=== PATIENT | female | born 1955 | race African-American/Black ===

== ENCOUNTER 2023-07-14 06:20 | Inpatient (IN) | payer OTHER, MEDICAID ==
[~2023-07-14] VITALS: Ht 172.7 cm; Wt 106.4 kg
[~2023-07-14 06:20] MED LIST: CELE200C PO; LOSA-534 PO
[2023-07-14] MEDS: LIDOCAINE W/ EPINEPHRINE 1% 20ML VIAL ONE (06:41)
[2023-07-14] MEDS: SUCCINYLCHOLINE CHLORIDE 20 MG/ML 10ML VIAL IV ONE (06:41)
[2023-07-14] MEDS ORDERED: PHENYLEPHRINE HCL 10 MG/ML VL IV ONE (06:45)
[2023-07-14] MEDS ORDERED: HYDROmorphone HCL 2 MG/ML VL/or syr ONE (07:38)
[2023-07-14] MEDS ORDERED: fentaNYL CITRATE 100 MCG/2 ML VL ONE (07:39)
[2023-07-14] MEDS ORDERED: MIDAZOLAM HCL 2MG/2ML 2ml VIAL (1mg/ml) ONE (07:39)
[2023-07-14] MEDS ORDERED: PROPOFOL 10 MG/ML 20 ML IV ONE (08:25)
[2023-07-14] MEDS ORDERED: MORPHINE SULFATE 4 MG/ML SYR/VIAL IV PRN (08:30)
[2023-07-14] MEDS ORDERED: LABETALOL HCL 5 MG/ML 4ML SYRINGE IV PRN (08:30)
[2023-07-14] MEDS ORDERED: MIDAZOLAM HCL 2MG/2ML 2ml VIAL (1mg/ml) IV PRN (08:30)
[2023-07-14] MEDS ORDERED: ePHEDrine SULFATE 50 MG/ML AMP IV PRN (08:30)
[2023-07-14] MEDS ORDERED: ETOMIDATE (2MG/ML) 20ML VIAL IV ONE (08:54)
[2023-07-14] MEDS ORDERED: ONDANSETRON HCL 4 MG/2 ML VIAL ONE (08:54)
[2023-07-14] MEDS ORDERED: SUGAMMADEX 200mg/2ml Vial (100MG/ML) IV ONE (10:25)
[2023-07-14] MEDS ORDERED: MORPHINE SULFATE INJ 2 MG/ml SYRG IV PRN (10:30)
[2023-07-14] MEDS ORDERED: NITROGLYCERIN 0.4 MG SL TAB SL PRN (10:30)
[2023-07-14 10:48] VITALS: O2SAT 100
[2023-07-14] MEDS: HYDROmorphone HCL 2 MG/ML VL/or syr ONE (11:28)
[2023-07-14] MEDS: HYDROmorphone HCL 2 MG/ML VL/or syr IV PRN (11:31)
[2023-07-14] MEDS ORDERED: THROAT LOZENGES(CEPASTAT) MT PRN (12:15)
[2023-07-14 12:51] VITALS: BP 112/58; PULSE 56; RESP 16; TEMP 97.2; O2SAT 100
[2023-07-14] MEDS ORDERED: ceFAZolin 1GM/50ML 50 ML IV SCH (14:00)
[2023-07-14] MEDS: CYCLOBENZAPRINE HCL 10 MG TAB PO SCH (14:10)
[2023-07-14] MEDS: ceFAZolin 1GM/50ML 50 ML IV SCH (14:12)
[2023-07-14] MEDS: D5W/SOD CHLO 0.9% 1,000 ML IV SCH (14:12)
[2023-07-14] MEDS: ONDANSETRON HCL 4 MG/2 ML VIAL IV PRN (14:25)
[2023-07-14 16:15] VITALS: BP 131/66; PULSE 62; RESP 18; TEMP 97.4; O2SAT 97
[2023-07-14 20:00] VITALS: BP 123/69; PULSE 74; RESP 20; TEMP 97.5; O2SAT 95
[2023-07-14 21:00] VITALS: BP 123/69; PULSE 69; RESP 20; TEMP 97.5; O2SAT 95
[2023-07-14] MEDS: DOCUSATE SOD 100 MG CAP PO SCH (21:39)
[2023-07-14] MEDS: MORPHINE SULFATE INJ 2 MG/ml SYRG IV PRN (23:54)
[2023-07-15] VITALS (7 sets, daily range): BP systolic 92–140; BP diastolic 50–76; PULSE 56–131; RESP 16–22; TEMP 97.8–99; O2SAT 91–96
[2023-07-15] MEDS: HYDROcodone-ACET 10/325MG TAB PO PRN (03:34)
[2023-07-15 06:47] LABS: Basophils # (auto) 0 10 ^3/uL (0-0.2); Basophils % (auto) 0.1 % (0.0-2.0); Eosinophils # (auto) 0 10 ^3/uL (0-0.8); Hematocrit 35.2 % (36.0-46.0); Hemoglobin 11.3 g/dL (12.2-16.2); Lymphocytes # (auto) 0.9 10 ^3/uL (0.4-5.4); Lymphocytes % (auto) 8.2 % (10.0-50.0); Mean Corpuscular Hemoglobin 27.1 pg (28.0-32.0); Mean Corpuscular Hgb Conc. 32.2 g/dL (32.0-36.0); Mean Corpuscular Volume 84.1 fL (80.0-100.0); Monocytes # (auto) 1.1 10 ^3/uL (0-1.3); Monocytes % (auto) 10.1 % (0.0-12.0); Neutrophils # (auto) 8.7 10 ^3/uL (1.6-8.6); Neutrophils % (auto) 81.6 % (37.0-80.0); Red Blood Cells 4.19 10^6/uL (4.0-5.20); Red Cell Distribution Width 14.6 % (11.8-14.3); White Blood Cell 10.7 10^3/uL (4.4-10.8)
[2023-07-15 06:54] LABS: Anion Gap 6 (5-15); Carbon Dioxide 25 mmol/L (20-30); Chloride 108 mmol/L (98-107); Potassium 3.8 mmol/L (3.5-5.1); Sodium 139 mmol/L (136-145)
[2023-07-15 06:55] LABS: Calcium 8.8 mg/dL (8.7-10.4)
[2023-07-15 07:00] LABS: Glucose 105 mg/dL (74-106); Magnesium 1.7 mg/dL (1.6-2.6)
[2023-07-15 07:10] LABS: BUN/Creatinine Ratio 6.8 (10.0-20.0); Blood Urea Nitrogen < 5 mg/dL (9-23)
[2023-07-15] MEDS: levoFLOXacin 750MG 150 ML IV ONE (11:23)
[2023-07-15] MEDS: ceFAZolin 1GM/50ML 50 ML IV SCH (11:24)
[2023-07-15] MEDS: TRANEXAMIC ACID 20 ML ONE (11:24)
[2023-07-15] MEDS: LIDOCAINE 2% JELLY 11ml (GLYDO) ONE (11:25)
[2023-07-15] MEDS: ceFAZolin 1GM/50ML 100 ML IV ONE (11:25)
[2023-07-15] MEDS: ONDANSETRON HCL 4 MG/2 ML VIAL IV ONE (11:25)
[2023-07-15] MEDS: ACETAMINOPHEN 325 MG TAB PO PRN (21:24)
[2023-07-16] VITALS (8 sets, daily range): BP systolic 106–148; BP diastolic 49–76; PULSE 92–109; RESP 17–22; TEMP 99–100.7; O2SAT 92–96
[2023-07-16] MEDS: ceFAZolin 1GM/50ML 50 ML IV SCH (00:52)
[2023-07-17] VITALS (33 sets, daily range): BP systolic 82–135; BP diastolic 40–71; PULSE 71–137; RESP 13–38; TEMP 97.5–102.7; O2SAT 69–100
[2023-07-17] MEDS ORDERED: IBUPROFEN 600 MG TAB PO PRN (05:45)
[2023-07-17] MEDS: dilTIAZem 25 MG/5 ML VIAL IV ONE ×2 (05:51→05:52)
[2023-07-17] MEDS: SODIUM CHLORIDE 0.9% 250 ML IV ONE (09:10)
[2023-07-17 09:22] LABS: Hemoglobin 12.4 g/dL (12.2-16.2)
[2023-07-17 09:26] LABS: Hematocrit 37.8 % (36.0-46.0); Mean Corpuscular Hgb Conc. 32.9 g/dL (32.0-36.0); Mean Corpuscular Volume 82.2 fL (80.0-100.0); Red Cell Distribution Width 14.4 % (11.8-14.3); White Blood Cell 14.1 10^3/uL (4.4-10.8)
[2023-07-17 09:36] LABS: Chloride 104 mmol/L (98-107); Potassium 2.6 mmol/L (3.5-5.1); Sodium 135 mmol/L (136-145)
[2023-07-17 09:37] LABS: Anion Gap 12 (5-15); Calcium 8.5 mg/dL (8.5-10.1); Carbon Dioxide 19 mmol/L (20-30)
[2023-07-17 09:42] LABS: BUN/Creatinine Ratio 7.3 (10.0-20.0); Blood Urea Nitrogen 6 mg/dL (9-23); Glucose 108 mg/dL (74-106)
[2023-07-17 09:58] LABS: Basophils % (manual) 0 (0.0-2.0); Blast Cells 0; Eosinophils % (manual) 0 (0-7); Myelocytes % 0; Promyelocytes % 0; Reactive Lymphocytes 0
[2023-07-17 10:09] LABS: Lactic Acid w/Reflex 2.6 mmol/L (0.4-2.0)
[2023-07-17] MEDS: SODIUM CHLORIDE 0.9% 500 ML IV ONE (10:30)
[2023-07-17] MEDS: POTASSIUM CHLORIDE 80 MEQ, LIDOCAINE 1% (LOCAL ANESTH.) 6 ML in SODIUM CHL 0.9% 500 ML IV ONE (10:30)
[2023-07-17 11:04] LABS: Magnesium 1.4 mg/dL (1.6-2.6)
[2023-07-17 11:19] LABS: Band Neutrophils % (manual) 16; Lymphocytes % (manual) 8 (10.0-50.0); Metamyelocytes % 6; Monocytes % (manual) 3 (0-12); Platelet Estimate Adequate
[2023-07-17] MEDS: MAGNESIUM SULFATE 1GM/100ML 100 ML IV SCH (11:51)
[2023-07-17] MEDS: AMIODARONE BOLUS KIT 100 ML IV ONE ×2 (14:07→14:15)
[2023-07-17] MEDS: AMIODARONE 450mg/250ml AE 250 ML IV ONE (14:07)
[2023-07-17] MEDS: DIGOXIN (250MCG/ML) 2 ML AMPULE ONE (14:12)
[2023-07-17] MEDS: DIGOXIN (250MCG/ML) 2 ML AMPULE IV ONE (14:15)
[2023-07-17] MEDS ORDERED: NOREPINEPHRINE 8 MG/250ML KIT 250 ML IV ONE (14:16)
[2023-07-17] MEDS: SODIUM CHLORIDE 0.9% 1,000 ML IV ONE (14:30)
[2023-07-17] MEDS: AMIODARONE 450mg/250ml AE 250 ML IV SCH ×2 (14:30→21:58)
[2023-07-17] MEDS: IOHEXOL 350 MG/ML 100ML IJ ONE (15:04)
[2023-07-17] MEDS: cefTRIAXone 2GM/50ML D5W 50 ML IV ONE (16:45)
[2023-07-18] VITALS (32 sets, daily range): BP systolic 84–139; BP diastolic 38–105; PULSE 75–91; RESP 17–37; TEMP 98.7–100.4; O2SAT 82–100
[2023-07-18] MEDS: PANTOPRAZOLE 40 MG/10 ML VIAL INJ IV SCH (01:32)
[2023-07-18 05:06] LABS: Basophils # (auto) 0 10 ^3/uL (0-0.2); Basophils % (auto) 0.2 % (0.0-2.0); Eosinophils # (auto) 0 10 ^3/uL (0-0.8); Eosinophils % (auto) 0.1 % (0.0-7.0); Lymphocytes # (auto) 0.8 10 ^3/uL (0.4-5.4); Lymphocytes % (auto) 5.5 % (10.0-50.0); Mean Corpuscular Hgb Conc. 32.4 g/dL (32.0-36.0); Mean Corpuscular Volume 83.2 fL (80.0-100.0); Monocytes # (auto) 1.3 10 ^3/uL (0-1.3); Monocytes % (auto) 8.5 % (0.0-12.0); Neutrophils # (auto) 13.1 10 ^3/uL (1.6-8.6); Neutrophils % (auto) 85.7 % (37.0-80.0); Red Blood Cells 3.73 10^6/uL (4.0-5.20); Red Cell Distribution Width 14.5 % (11.8-14.3); White Blood Cell 15.3 10^3/uL (4.4-10.8)
[2023-07-18 05:22] LABS: Alanine Aminotransferase 14 U/L (7-40); Albumin 2.7 g/dL (3.2-4.8); Alkaline Phosphatase 70 U/L (46-116); Anion Gap 5 (5-15); Aspartate Aminotransferase 40 U/L (13-40); BUN/Creatinine Ratio 8.9 (10.0-20.0); Blood Urea Nitrogen 5 mg/dL (9-23); Calcium 7.8 mg/dL (8.7-10.4); Carbon Dioxide 22 mmol/L (20-30); Chloride 111 mmol/L (98-107); Glucose 123 mg/dL (74-106); Magnesium 2.1 mg/dL (1.6-2.6); Potassium 3.7 mmol/L (3.5-5.1); Sodium 138 mmol/L (136-145)
[2023-07-18 05:23] LABS: Bilirubin, Total 0.7 mg/dL (0.2-1.0); Total Protein 4.9 g/dL (5.7-8.2)
[2023-07-18] MEDS: cefTRIAXone 2GM/50ML D5W 50 ML IV SCH (10:38)
[2023-07-18] MEDS: AMIODARONE HCL 200 MG TAB PO SCH ×2 (13:33→21:24)
[2023-07-19] VITALS (8 sets, daily range): BP systolic 111–144; BP diastolic 53–78; PULSE 89–104; RESP 17–23; TEMP 97.9–98.9; O2SAT 97–100
[2023-07-19] MEDS: PIPERACILLIN-TAZOB 3.375GM 100 ML IV SCH (00:05)
[2023-07-19] MEDS: MORPHINE SULFATE INJ 2 MG/ml SYRG IV PRN (03:26)
[2023-07-19] MEDS ORDERED: HYDROcodone-ACET 10/325MG TAB PO PRN (12:30)
[2023-07-19] MEDS: D5W/SOD CHLO 0.9% 1,000 ML IV SCH (13:45)
[2023-07-19] MEDS: HYDROcodone-ACET 5/325MG TAB PO PRN (14:26)
[2023-07-19] MEDS ORDERED: HALOPERIDOL LACTATE 5 MG/ML INJ VIAL IM PRN (20:30)
[2023-07-19] MEDS: AMIODARONE HCL 200 MG TAB PO SCH (22:09)
[2023-07-19 22:49] LABS: Urine Bacteria None Seen /hpf (None Seen)
[2023-07-19 22:58] LABS: Urine Blood Negative /uL (Negative); Urine Clarity Clear (Clear); Urine Color Light-Yellow (Yellow); Urine Mucus FEW (None Seen); Urine Protein, UAD Negative (Negative); Urine Urobilinogen 3 mg/dL (Negative); Urine WBC 1 /hpf (0 - 5)
[2023-07-20] VITALS (8 sets, daily range): BP systolic 109–145; BP diastolic 51–70; PULSE 82–95; RESP 17–25; TEMP 37.2; O2SAT 96–100
[2023-07-20 03:03] LABS: Basophils # (auto) 0 10 ^3/uL (0-0.2); Basophils % (auto) 0.3 % (0.0-2.0); Eosinophils # (auto) 0 10 ^3/uL (0-0.8); Eosinophils % (auto) 0.4 % (0.0-7.0); Hematocrit 30.2 % (36.0-46.0); Monocytes # (auto) 1.1 10 ^3/uL (0-1.3)
[2023-07-20 03:05] LABS: Hemoglobin 9.9 g/dL (12.2-16.2); Lymphocytes # (auto) 0.7 10 ^3/uL (0.4-5.4); Lymphocytes % (auto) 7.3 % (10.0-50.0); Mean Corpuscular Hemoglobin 27.3 pg (28.0-32.0); Mean Corpuscular Hgb Conc. 32.8 g/dL (32.0-36.0); Mean Corpuscular Volume 83.2 fL (80.0-100.0); Monocytes % (auto) 11.3 % (0.0-12.0); Neutrophils % (auto) 80.7 % (37.0-80.0); Red Blood Cells 3.63 10^6/uL (4.0-5.20); Red Cell Distribution Width 14.4 % (11.8-14.3); White Blood Cell 9.9 10^3/uL (4.4-10.8)
[2023-07-20 03:22] LABS: Alanine Aminotransferase 14 U/L (7-40); Albumin 3.1 g/dL (3.2-4.8); Alkaline Phosphatase 78 U/L (46-116); Anion Gap 7 (5-15); Aspartate Aminotransferase 29 U/L (13-40); Calcium 8.2 mg/dL (8.7-10.4); Carbon Dioxide 22 mmol/L (20-30); Chloride 107 mmol/L (98-107); Glucose 109 mg/dL (74-106); Magnesium 1.9 mg/dL (1.6-2.6); Potassium 3.4 mmol/L (3.5-5.1); Sodium 136 mmol/L (136-145); Total Protein 5.4 g/dL (5.7-8.2)
[2023-07-20 03:26] LABS: BUN/Creatinine Ratio 8.8 (10.0-20.0); Blood Urea Nitrogen < 5 mg/dL (9-23)
[2023-07-20] MEDS ORDERED: CEFPODOXIME PROXETIL 200 MG TAB PO SCH (22:00)
[2023-07-20] MEDS ORDERED: METOPROLOL TARTRATE 25 MG TAB PO SCH (22:00)
[2023-07-20] MEDS ORDERED: LEVO500T91 PO (22:43)
[2023-07-21 08:06] LABS: RPR Non Reactive (Non Reactive)
== END 2023-07-20 19:00 | DRG 460 ==
LOC: SUR 06:20 → TELE 10:26 → TELE-CENTR 12:30 → DOU IN ICU 07-17 17:13 → TELE-WESTW 07-18 14:58
PROVIDERS: ADMIT Orthopaedic Surgery; ATTEND Orthopaedic Surgery
PROC: 01NB0ZZ Release Lumbar Nerve, Open Approach (ICD-10-PCS; 2023-07-14)
PROC: 00NY0ZZ Release Lumbar Spinal Cord, Open Approach (ICD-10-PCS; 2023-07-14)
PROC: 4A11X4G Monitoring of Peripheral Nervous Electrical Activity, Intraoperative, External Approach (ICD-10-PCS; 2023-07-14)
PROC: 0SG00AJ Fusion of Lumbar Vertebral Joint with Interbody Fusion Device, Posterior Approach, Anterior Column, Open Approach (ICD-10-PCS; principal; 2023-07-14 07:45)
DX: M48.062 Spinal stenosis, lumbar region with neurogenic claudication (principal); E87.20 Acidosis, unspecified; R78.81 Bacteremia; I48.20 Chronic atrial fibrillation, unspecified; M54.16 Radiculopathy, lumbar region; M43.16 Spondylolisthesis, lumbar region; K21.9 Gastro-esophageal reflux disease without esophagitis; I10 Essential (primary) hypertension; E11.9 Type 2 diabetes mellitus without complications; E87.6 Hypokalemia; D72.829 Elevated white blood cell count, unspecified; E83.42 Hypomagnesemia; I48.91 Unspecified atrial fibrillation; B96.89 Other specified bacterial agents as the cause of diseases classified elsewhere; J45.909 Unspecified asthma, uncomplicated; G89.29 Other chronic pain; Z90.711 Acquired absence of uterus with remaining cervical stump; Z90.49 Acquired absence of other specified parts of digestive tract
CPT/HCPCS: 36415; 71045; 71275; 72100; 74018; 76000; 80048; 80053; 81001; 82140; 82607; 82962; 83605; 83735; 85007; 85025; 85027; 86592; 86850; 86900; 86901; 87040; 87077; 87086; 87186; 93005; 93306; 97110; 97116; 97163; 97530; C9113; G0378; J0330; J2001; J2250; J2405; J2543; J2704; J7042

== ENCOUNTER 2023-09-05 16:09 | Emergency (ER) | payer OTHER, MEDICAID ==
[~2023-09-05] VITALS: Ht 154.9 cm; Wt 86.0 kg
[~2023-09-05 16:09] MED LIST changes: +LEVO500T91 PO
[2023-09-05 18:26] LABS: Basophils # (auto) 0 10 ^3/uL (0-0.2); Basophils % (auto) 0.4 % (0.0-2.0); Eosinophils # (auto) 0 10 ^3/uL (0-0.8); Eosinophils % (auto) 0.1 % (0.0-7.0); Hematocrit 37.5 % (36.0-46.0); Hemoglobin 12.4 g/dL (12.2-16.2); Lymphocytes # (auto) 1.6 10 ^3/uL (0.4-5.4); Mean Corpuscular Hemoglobin 26.7 pg (28.0-32.0); Mean Corpuscular Volume 80.9 fL (80.0-100.0); Monocytes # (auto) 0.9 10 ^3/uL (0-1.3); Monocytes % (auto) 11.9 % (0.0-12.0); Neutrophils % (auto) 66.6 % (37.0-80.0); Red Blood Cells 4.63 10^6/uL (4.0-5.20); Red Cell Distribution Width 16.4 % (11.8-14.3); White Blood Cell 7.4 10^3/uL (4.4-10.8)
[2023-09-05] MEDS ORDERED: ACE3T PO (18:41)
[2023-09-05] MEDS ORDERED: LACT10SO3 PO (18:41)
[2023-09-05 18:48] LABS: Alanine Aminotransferase 15 U/L (7-40); Albumin 4.3 g/dL (3.2-4.8); Alkaline Phosphatase 122 U/L (46-116); Anion Gap 10 (5-15); Aspartate Aminotransferase 25 U/L (13-40); BUN/Creatinine Ratio 10.7 (10.0-20.0); Bilirubin, Total 1.3 mg/dL (0.2-1.0); Blood Urea Nitrogen 12 mg/dL (9-23); Calcium 10.2 mg/dL (8.5-10.1); Carbon Dioxide 27 mmol/L (20-30); Chloride 98 mmol/L (98-107); Glucose 93 mg/dL (74-106); Potassium 2.9 mmol/L (3.5-5.1); Sodium 135 mmol/L (136-145); Total Protein 8.5 g/dL (5.7-8.2)
[2023-09-05] MEDS: LACTULOSE 20Gm/30ML SOLN PO ONE (18:56)
[2023-09-05 18:59] VITALS: BP 128/68; PULSE 88; RESP 18; TEMP 98.7; O2SAT 100
[2023-09-05 19:02] LABS: Lactic Acid w/Reflex 2.3 mmol/L (0.4-2.0)
== END 2023-09-05 19:04 | disposition home or self-care (01) ==
LOC: ER 16:09
DX: K59.00 Constipation, unspecified (principal); G89.18 Other acute postprocedural pain; M54.9 Dorsalgia, unspecified
CPT/HCPCS: 36415; 74018; 80053; 83605; 85025

== ENCOUNTER 2023-09-19 17:05 | Inpatient (IN) | payer OTHER, MEDICAID ==
[~2023-09-19] VITALS: Ht 154.9 cm; Wt 88.3 kg
[~2023-09-19 17:05] MED LIST changes: +ACE3T PO; +LACT10SO3 PO
[2023-09-19 17:42] VITALS: PULSE 78; RESP 18; O2SAT 98
[2023-09-19] MEDS: SODIUM CHLORIDE 0.9% 1,000 ML IV ONE ×3 (18:34→20:16)
[2023-09-19] MEDS: KETOROLAC TROMETH 30 MG/ML 1ML VIAL IV ONE (18:34)
[2023-09-19 19:10] LABS: Albumin 3.5 g/dL (3.2-4.8); Alkaline Phosphatase 86 U/L (46-116); Anion Gap 8 (5-15); Aspartate Aminotransferase 13 U/L (13-40); Blood Urea Nitrogen 7 mg/dL (9-23); Calcium 9.3 mg/dL (8.7-10.4); Carbon Dioxide 25 mmol/L (20-30); Chloride 106 mmol/L (98-107); Glucose 99 mg/dL (74-106); Potassium 3.6 mmol/L (3.5-5.1); Sodium 139 mmol/L (136-145); Total Protein 7.1 g/dL (5.7-8.2)
[2023-09-19 19:27] LABS: INR 1.24 (0.9-1.15); Partial Thromboplastin Time 27.4 SEC (24.5-34.5); Prothrombin Time 12.9 sec (9.3-11.8)
[2023-09-19 19:30] VITALS: PULSE 76; RESP 12; O2SAT 97
[2023-09-19 19:34] LABS: Alanine Aminotransferase < 9 U/L (7-40)
[2023-09-19] MEDS: MIDAZOLAM HCL 2MG/2ML 2ml VIAL (1mg/ml) IV ONE (20:21)
[2023-09-19] MEDS: ACETAMINOPHEN 325 MG TAB PO ONE (20:31)
[2023-09-19] MEDS ORDERED: ACETAMINOPHEN 325 MG TAB PO PRN (21:00)
[2023-09-19] MEDS ORDERED: hydrALAZINE HCL 20 MG/ML VL IV PRN (21:00)
[2023-09-19] MEDS ORDERED: DOCUSATE SOD 100 MG CAP PO PRN (21:00)
[2023-09-19] MEDS: levETIRAcetam 500 mg/100ml 100 ML IV SCH (21:19)
[2023-09-19] MEDS: levETIRAcetam 1000 mg/100ml 100 ML IV ONE (21:21)
[2023-09-19] MEDS: SODIUM CHLORIDE 0.9% 1,000 ML IV SCH (21:23)
[2023-09-19] MEDS ORDERED: MORPHINE SULFATE INJ 2 MG/ml SYRG IV PRN (23:00)
[2023-09-20] MEDS: SODIUM CHLORIDE 0.9% 1,000 ML IV ONE (00:24)
[2023-09-20] MEDS: NOREPINEPHRINE 8 MG/250ML KIT 250 ML IV SCH (01:23)
[2023-09-20 01:25] LABS: Basophils # (auto) 0 10 ^3/uL (0-0.2); Basophils % (auto) 0.3 % (0.0-2.0); Eosinophils # (auto) 0 10 ^3/uL (0-0.8); Eosinophils % (auto) 0.1 % (0.0-7.0); Hemoglobin 9.6 g/dL (12.2-16.2); Lymphocytes # (auto) 1.1 10 ^3/uL (0.4-5.4); Lymphocytes % (auto) 15.9 % (10.0-50.0); Mean Corpuscular Hemoglobin 26.4 pg (28.0-32.0); Mean Corpuscular Hgb Conc. 32.2 g/dL (32.0-36.0); Mean Corpuscular Volume 81.9 fL (80.0-100.0); Monocytes # (auto) 0.8 10 ^3/uL (0-1.3); Monocytes % (auto) 11.2 % (0.0-12.0); Neutrophils # (auto) 4.9 10 ^3/uL (1.6-8.6); Neutrophils % (auto) 72.5 % (37.0-80.0); Red Blood Cells 3.66 10^6/uL (4.0-5.20); Red Cell Distribution Width 17.7 % (11.8-14.3); White Blood Cell 6.8 10^3/uL (4.4-10.8)
[2023-09-20] MEDS: ONDANSETRON HCL 4 MG/2 ML VIAL IV PRN (03:33)
[2023-09-20 05:19] LABS: Basophils # (auto) 0 10 ^3/uL (0-0.2); Eosinophils # (auto) 0 10 ^3/uL (0-0.8); Hemoglobin 10.5 g/dL (12.2-16.2); Mean Corpuscular Hemoglobin 26.6 pg (28.0-32.0); Monocytes # (auto) 0.8 10 ^3/uL (0-1.3); White Blood Cell 6.5 10^3/uL (4.4-10.8)
[2023-09-20 05:21] LABS: Basophils % (auto) 0.3 % (0.0-2.0); Eosinophils % (auto) 0.3 % (0.0-7.0); Hematocrit 32.7 % (36.0-46.0); Lymphocytes # (auto) 1.3 10 ^3/uL (0.4-5.4); Lymphocytes % (auto) 19.9 % (10.0-50.0); Mean Corpuscular Hgb Conc. 32.1 g/dL (32.0-36.0); Mean Corpuscular Volume 82.9 fL (80.0-100.0); Neutrophils # (auto) 4.3 10 ^3/uL (1.6-8.6); Neutrophils % (auto) 66.5 % (37.0-80.0); Nucleated Red Blood Cells % 0.1 %; Red Blood Cells 3.95 10^6/uL (4.0-5.20); Red Cell Distribution Width 17.9 % (11.8-14.3)
[2023-09-20 05:38] LABS: Albumin 2.8 g/dL (3.2-4.8); Alkaline Phosphatase 72 U/L (46-116); Anion Gap 7 (5-15); Aspartate Aminotransferase 12 U/L (13-40); BUN/Creatinine Ratio 6.5 (10.0-20.0); Blood Urea Nitrogen 6 mg/dL (9-23); Calcium 8.4 mg/dL (8.7-10.4); Carbon Dioxide 21 mmol/L (20-30); Chloride 114 mmol/L (98-107); Glucose 111 mg/dL (74-106); Potassium 3.1 mmol/L (3.5-5.1); Sodium 142 mmol/L (136-145)
[2023-09-20 05:39] LABS: Bilirubin, Total 0.7 mg/dL (0.2-1.0); Total Protein 5.8 g/dL (5.7-8.2)
[2023-09-20 05:43] LABS: Alanine Aminotransferase < 9 U/L (7-40)
[2023-09-20 08:25] LABS: Urine Bacteria None Seen /hpf (None Seen)
[2023-09-20 08:33] LABS: Urine Blood Negative /uL (Negative); Urine Clarity Clear (Clear); Urine Color Light-Yellow (Yellow); Urine Protein, UAD Negative (Negative); Urine Specific Gravity 1.006 (1.001-1.035); Urine Urobilinogen Normal (Negative); Urine WBC 1 /hpf (0 - 5)
[2023-09-20 08:47] LABS: Amphetamine Screen, Urine Neg (NEGATIVE); Barbiturate Scree,Urine Neg (NEGATIVE); Benzodiazephine Screen, Urine Pos (NEGATIVE); Cannabinoid Screen, Urine Neg (NEGATIVE); Cocaine Screen, Urine Neg (NEGATIVE); Opiate Scree,Urine Neg (NEGATIVE); Phencyclidine Screen, Urine Neg (NEGATIVE)
[2023-09-20 09:11] VITALS: RESP 20; O2SAT 96
[2023-09-20 09:58] LABS: COVID19 ANTIGEN SOFIA FIA NEGATIVE (NEGATIVE); Rapid Influenza A Negative (Negative); Rapid Influenza B Negative (Negative)
[2023-09-20] MEDS: NITROGLYCERIN 0.4 MG SL TAB SL PRN (11:40)
[2023-09-20] MEDS: MIDODRINE HCL 10 MG TAB PO SCH (16:30)
[2023-09-20] MEDS ORDERED: POTASSIUM CHL 20 Meq TABLET PO ONE (19:30)
[2023-09-20] MEDS: POTASSIUM EFFERVESENT TAB 25 MEQ PO STA (21:48)
[2023-09-21] VITALS (75 sets, daily range): BP systolic 82–152; BP diastolic 44–71; PULSE 48–124; RESP 8–21; TEMP 97.7–98.7; O2SAT 93–100
[2023-09-21] MEDS: HYDROcodone-ACET 5/325MG TAB PO PRN (02:22)
[2023-09-22] VITALS (21 sets, daily range): BP systolic 97–138; BP diastolic 47–75; PULSE 63–91; RESP 10–22; TEMP 36.7; O2SAT 95–100
[2023-09-22 05:55] LABS: Albumin 2.9 g/dL (3.2-4.8); Alkaline Phosphatase 77 U/L (46-116); Anion Gap 8 (5-15); Aspartate Aminotransferase 12 U/L (13-40); Calcium 8.6 mg/dL (8.5-10.1); Carbon Dioxide 25 mmol/L (20-30); Chloride 110 mmol/L (98-107); Glucose 79 mg/dL (74-106); Magnesium 1.4 mg/dL (1.6-2.6); Potassium 2.9 mmol/L (3.5-5.1); Sodium 143 mmol/L (136-145)
[2023-09-22 05:56] LABS: Bilirubin, Total 0.6 mg/dL (0.2-1.0); Total Protein 5.8 g/dL (5.7-8.2)
[2023-09-22 06:13] LABS: Alanine Aminotransferase < 9 U/L (7-40); BUN/Creatinine Ratio 8.2 (10.0-20.0); Blood Urea Nitrogen < 5 mg/dL (9-23)
[2023-09-22 06:20] LABS: Basophils # (auto) 0.1 10 ^3/uL (0-0.2); Eosinophils # (auto) 0 10 ^3/uL (0-0.8); Eosinophils % (auto) 0.6 % (0.0-7.0); Hematocrit 32.4 % (36.0-46.0); Hemoglobin 10.4 g/dL (12.2-16.2); Lymphocytes # (auto) 1.3 10 ^3/uL (0.4-5.4); Lymphocytes % (auto) 25.1 % (10.0-50.0); Mean Corpuscular Hemoglobin 26.3 pg (28.0-32.0); Mean Corpuscular Hgb Conc. 32.2 g/dL (32.0-36.0); Mean Corpuscular Volume 81.7 fL (80.0-100.0); Monocytes # (auto) 0.6 10 ^3/uL (0-1.3); Monocytes % (auto) 11.4 % (0.0-12.0); Neutrophils # (auto) 3.2 10 ^3/uL (1.6-8.6); Neutrophils % (auto) 61.9 % (37.0-80.0); Nucleated Red Blood Cells % 0.1 %; Red Blood Cells 3.96 10^6/uL (4.0-5.20); Red Cell Distribution Width 17.3 % (11.8-14.3); White Blood Cell 5.2 10^3/uL (4.4-10.8)
[2023-09-22] MEDS: MAGNESIUM SULFATE 1GM/100ML 100 ML IV SCH (08:42)
[2023-09-22] MEDS: POTASSIUM CHL 20MEQ/100ML 100 ML IV SCH (08:43)
== END 2023-09-22 18:00 | disposition home health service (06) | DRG 640 ==
LOC: ER 17:05 → EDBD 17:05 → TELE 22:56 → DOU IN ICU 09-21 05:00 → ICU CENTRL 09-21 05:10 → DOU IN ICU 09-22 04:43 → TELE-WESTW 09-22 12:40
PROVIDERS: ADMIT Nurse Practitioner Family; ATTEND Internal Medicine
DX: E86.0 Dehydration (principal); N17.0 Acute kidney failure with tubular necrosis; R57.1 Hypovolemic shock; I10 Essential (primary) hypertension; K21.9 Gastro-esophageal reflux disease without esophagitis; Z96.652 Presence of left artificial knee joint; Z20.822 Contact with and (suspected) exposure to COVID-19; Z79.1 Long term (current) use of non-steroidal anti-inflammatories (NSAID); Z79.899 Other long term (current) drug therapy
CPT/HCPCS: 36415; 70450; 71045; 80053; 80307; 80320; 81001; 83605; 83735; 83880; 84484; 85025; 85610; 85730; 87081; 87426; 87804; 92610; 93005; 99291; G0378; J1885; J2250; J2405; J3480

== ENCOUNTER 2024-10-21 15:03 | Emergency (ER) | payer OTHER, MEDICAID ==
[~2024-10-21] VITALS: Ht 154.9 cm; Wt 83.2 kg
[~2024-10-21 15:03] MED LIST changes: -LEVO500T91 PO
--- NOTE | 2024-10-21 15:41 | ED.PDOC ---
GI ASSESSMENT HPI Comments A 68 year-old female, with a PMHX of HTN, presents to the ED with a chief complaint of RLQ abdominal pain as of X2 weeks ago. Patient states the abdominal pain is constant, non-radiating, with associated N/V. Patient states she went to Urgent Care on 10/19 and was told to get an XRAY or CAT scan for further care. Patient has no further symptoms at this time and otherwise denies further associated symptoms of diarrhea, hematuria, dysuria, chest pain, migraine, dizziness, or fever. Past Medical history: HTN Past Surgical history: Spinal Surgery, X2 Knee Replacement Medications: Denies Social History: Denies smoking, ETOH, and drug use. Allergies: NKA ARNDAVIS: HPI: Poor Historian. REVIEW OF SYSTEMS: CONSTITUTIONAL: Denies acute: fever, diaphoresis, chills, HEAD: Denies acute: headache, photophobia Eyes: Denies acute: Double vision, vision loss, eye pain, eye discharge. EARS: Denies acute: tinnitus, hearing loss, ear discharge, ear pain, THROAT: Denies acute: sore throat, swelling, difficulty swallowing , pain with swallowing, change in voice. NECK: Denies acute: neck pain, neck swelling, stiff neck. HEART: Denies acute : chest pain, palpitations, LUNGS: Denies acute: SOB, wheezing, cough, hemoptysis ABDOMEN: Denies acute: diarrhea, melena , hematemesis, hematochezia SKIN: Denies acute: rash, redness, lesions, itchiness. EXTREMITIES: Denies acute: calf pain, numbness, tingling, weakness, denies pain in extremity. Denies acute: Low back pain. Neuro: Denies acute: focal neurological deficit, motor or sensory focal neurological deficit, tremors, seizure like activity, confusion, dizziness, change in mental status, loss of bowel or bladder function, cauda equina like symptoms. : Denies acute: dysuria, hematuria, flank pain, increase in urinary frequency. PSYCH: Denies acute: hallucination, suicidal ideation, homicidal ideation. FEMALE: Denies acute: abnormal vaginal bleeding, foul odor, unusual discharge. PHYSICAL EXAM: General: ----[id number]----acute distress, awake and alert. Head: normocephalic, atraumatic. Neck: supple, trachea is midline, no swelling. Throat: Normal phonation. Eyes:, no erythema, no purulent discharge, no proptosis, no icterus. Heart: regular rate, regular rhythm, no significant murmur appreciated. Lungs: no apparent respiratory distress, Able to speak in full sentences. No wheezing, no rhonchi, no crackles. No stridors Clear to auscultation bilaterally. Abdomen: Right lower quad tender to palpation, non distended, soft, no guarding, no rebound, + bowel sounds. Obese Neuro: Awake, Alert, oriented to name, self, situation, follows commands GCS=15. Speech is normal. Skin: no petechia, no purpura, no cyanosis, non-pale, not jaundice. Lower extremities: --no - Pitting edema no deformity, no focal swelling, no calf TTP. Makes eye contact. moves all four extremities. Face: no apparent facial droop. Ambulating in the ED independently. ED COURSE: DISCLAIMER: This medical document was created using an electronic medical record system with voice recognition software and computerized dictation system. Although this document has been carefully reviewed, there might still be some phonetic and typographical errors. Occasional wrong-word or "sound-alike" substitutions may have occurred due to the inherent limitations of voice recognition software. These areas are purely typographical due to imperfections of the software programs and do not reflect any compromise in the patient's medical care. Please read the chart carefully and recognize, using context, where these substitutions have occurred. Chief Complaint: Abdominal Pain Time Seen by MD: 15:25 Reviewed Notes: Medications, Allergies Allergies: Coded Allergies: NO KNOWN ALLERGIES (Unverified , 07/09/23) Home Meds Active Scripts Acetaminophen W/ Codeine (Tylenol W/Cod #3) 1 Tab Tb, 1 TAB PO Q6HP PRN, #20 TAB Prov:YUNIER JOHNS PAC 09/05/23 Lactulose (Lactulose) 10 Gm/15 Ml Debbi, 10 GM PO BIDP PRN, #150 ML Prov:YUNIER JOHNS PAC 09/05/23 Reported Medications Losartan Potassium (Losartan Potassium) 50 Mg Tab, 50 MG PO DAILY, TAB 07/09/23 Celecoxib (Celebrex) 200 Mg Cap, 200 MG PO DAILY, CAP 07/09/23 Information Source: Patient Mode of Arrival: Ambulatory Timing: Weeks Duration: Since onset Prehospital treatment: None Severity: Moderate Pain Location: RLQ Associated sign and symptoms: Nausea, Vomiting, Abdominal Pain Past Medical History PAST MEDICAL HISTORY: HTN PROCUREMENT SPECIALIST History: No Pertinent PROCUREMENT SPECIALIST History Family History Family History: Reviewed,noncontributory to illness, No family hx of Cancer, No family hx of DM, No family hx of Heart mahin, No family hx of HTN, No family hx ofKidney mahin, No family hx of Liver mahin, No family hx of Lung mahin, No family hx of Stroke Social History Smoker: Non-Smoker Alcohol: Denies ETOH Use Drugs: Denies Drug Use Lives In: Home Was a procedure done? Was a procedure done?: No GI differential Dx Differential Diagnosis: Constipation, Gastroenteritis, UTI, Food Poisoning, Bacterial, Parasitic, Viral, Mass, Kidney Stone, Other (DDX include Diverticulitis, colitis, gastroenteritis, acute abdomen, SBO, enteritis, constipation, volvulus, appendicitis, Gallbladder disease, choledocolithiasis, ascending cholangitis, pancreatitis, intraAbdominal mass/neoplasm, hepatitis, UTI, pylonephritis, kidney stone, aneurysm, dissection, Inflammatory bowel disease, gastroparesis, ischemic bowel, ovarian torsion, ovarian cyst/mass, tubo-ovarian abscess, PID, STD. e) X-Ray, Labs, Meds, VS Vital Signs Date Time Temp Pulse Resp B/P (MAP) Pulse Ox O2 Delivery O2 Flow Rate FiO2 10/21/24 19:28 92 18 98 Room Air* 0 21 10/21/24 18:49 97.9 70 14 157/77 (103) 99 97.9 10/21/24 15:25 97.8 87 18 129/77 (94) 97 97.8 Lab Test 10/21/24 19:32 10/21/24 15:55 Range/Units Urine Color Light-yellow Yellow Urine Clarity Clear Clear Urine pH 6.5 5.0-9.0 Urine Specific [place] 1.017 1.001-1.035 Urine Protein Negative Negative Urine Ketones Negative Negative Urine Blood Negative Negative /uL Urine Nitrite Negative Negative Urine Bilirubin Negative Negative Urine Urobilinogen Normal Negative mg/dL Urine Leukocyte Esterase Negative Negative /uL Urine RBC 6 0 - 4 /hpf Urine Microscopic WBC 1 0-5 /HPF Urine Squamous Epithelial Cells Few <5 /hpf Urine Bacteria None seen None Seen /hpf Urine Glucose Normal Normal mg/dL White Blood Count 6.7 4.4-10.8 10^3/uL Red Blood Count 4.89 4.0-5.20 10^6/uL Hemoglobin 13.2 12.2-16.2 g/dL Hematocrit 40.9 36.0-46.0 % Mean Corpuscular Volume 83.7 80.0-100.0 fL Mean Corpuscular Hemoglobin 27.0 L 28.0-32.0 pg Mean Corpuscular Hemoglobin Concent 32.3 32.0-36.0 g/dL Red Cell Distribution Width 15.1 H 11.8-14.3 % Platelet Count 235 140-450 10^3/uL Mean Platelet Volume 7.2 6.9-10.8 fL Neutrophils (%) (Auto) 59.2 37.0-80.0 % Lymphocytes (%) (Auto) 27.7 10.0-50.0 % Monocytes (%) (Auto) 11.1 0.0-12.0 % Eosinophils (%) (Auto) 1.4 0.0-7.0 % Basophils (%) (Auto) 0.6 0.0-2.0 % Neutrophils # (Auto) 4.0 1.6-8.6 10 ^3/uL Lymphocytes # (Auto) 1.9 0.4-5.4 10 ^3/uL Monocytes # (Auto) 0.7 0-1.3 10 ^3/uL Eosinophils # (Auto) 0.1 0-0.8 10 ^3/uL Basophils # (Auto) 0 0-0.2 10 ^3/uL Nucleated Red Blood Cells 0.1 % Sodium Level 144 136-145 mmol/L Potassium Level 4.0 3.5-5.1 mmol/L Chloride Level 108 H 98-107 mmol/L Carbon Dioxide Level 29 20-31 mmol/L Anion Gap 7 5-15 Blood Urea Nitrogen 10 9-23 mg/dL Creatinine 0.84 0.550-1.02 mg/dL Glomerular Filtration Rate Calc 76 >90 mL/min BUN/Creatinine Ratio 11.9 10.0-20.0 Serum Glucose 91 74-106 mg/dL Lactic Acid Level 0.6 0.4-2.0 mmol/L Calcium Level 9.8 8.7-10.4 mg/dL Total Bilirubin 0.8 0.2-1.0 mg/dL Aspartate Amino Transferase (AST) 18 13-40 U/L Alanine Aminotransferase (ALT) 13 7-40 U/L Alkaline Phosphatase 89 46-116 U/L Troponin I High Sensitivity < 3 L </=34 ng/L Total Protein 7.1 5.7-8.2 g/dL Albumin 4.5 3.2-4.8 g/dL Lipase 32 12-53 U/L [place] [address] Ph: [phone] DIAGNOSTIC IMAGING Diagnostic Imaging Report : [id number] Signed PATIENT: MARILYN MCNEILL ACCT: [id number] UNIT: [id number] : 1955 LOC: ER ROOM / BED: / AGE / SEX: 68 / F ADM STATUS: REG ER SERVICE 1537 ORDERING PHYSICIAN: PAULO BENOIT DO PROCEDURE(s): ABPL - CT AB PEL WO CON-NO ORAL OR IV REASON: RLQ PAIN N/V ORDER NUMBER(s): [id number], ACCESSION NUMBER(s): [id number] Indication: RLQ PAIN N/V Technique: CT axial images of the abdomen and pelvis are obtained without contrast. Coronal and sagittal reformats were obtained. Radiation Dose Information: CTDI volume is 15.4 mGy. Dose-length product is 703 mGy*cm Comparison: None FINDINGS: There is limited interpretation of the abdomen and pelvis without administration of intravenous contrast. Lung bases demonstrate atelectasis. Adrenal glands, spleen, pancreas unremarkable in shape. Cholecystectomy. Liver unremarkable in shape. No hydronephrosis/ nephrolithiasis. Stomach partially distended. Small bowel loops are normal in caliber. Moderate to large volume stool in the colon. Normal appendix. Abdominal aortic atherosclerotic disease. Bladder partially distended. No free pelvic fluid. No inguinal lymphadenopathy. Posterior fixation of the L4, L5 vertebral bodies with interbody disc spacer. Endplate irregularity at L4-5. IMPRESSION: Limited evaluation without contrast. No CT evidence for acute appendicitis. Moderate to large volume stool within the colon. Colonic diverticular disease. Cholecystectomy. Other findings as described [address] [address] Ph: [phone] DIAGNOSTIC IMAGING Diagnostic Imaging Report : [id number] Signed PATIENT: MARILYN MCNEILL ACCT: [id number] UNIT: [id number] : 1955 LOC: ER ROOM / BED: / AGE / SEX: 68 / F ADM STATUS: REG ER SERVICE 1640 ORDERING PHYSICIAN: PAULO BENOIT DO PROCEDURE(s): PELUS - PELVIC REASON: RLQ PAIN ORDER NUMBER(s): [id number], ACCESSION NUMBER(s): [id number] INDICATION: RLQ PAIN TECHNIQUE: Multiple real-time grayscale transabdominal sonographic images along with color and duplex Doppler of the uterus and ovaries were obtained. COMPARISON: None FINDINGS: The uterus has been surgically removed. The right ovary not visible. The left ovary not visible IMPRESSION: 1. Uterus has been surgically removed. 2. Ovaries not visible. Time of 1ST Reevaluation: 16:47 Reevaluation 1ST: Unchanged Time of 2ND Reevaluation: 17:32 (Urinalysis still pending) Patient Education/Counseling: Diagnosis, Treatment Family Education/Counseling: No Family Present Medical Screening: No EMC Exist At This Time Comments MDM: patient presented with the above HPI.---abdominal pain---workup was initiated. patient was found with the above mentioned diagnosis. the following medications were ordered: please refer to order lists of meds and tests obtained by myself Dr. Benoit. Patient ED course and VS have been stabilized. Patient has been reassessed in the ED and remained in a stable condition. Pertinent incidental findings were discussed with the patient and/or family. Patient/family voices understanding and is agreeable with plan. Patient has been observed in the ED adequate length of time to insure improvement/stability. Escalation of care considered: Consideration of escalation to observation or admission Patient was ADMITTED to the medicine team for further evaluation and treatment of their presentation. All the reports of any imaging studies that were ordered by myself were reviewed by myself. SEPSIS Sepsis Screen Physician Orders Gasket Notcher (10/21/24 ) Electrocardigram (10/21/24 15:34) Ct Ab Pel Wo Con-No Oral Or Iv (10/21/24 15:34) Pelvic (10/21/24 16:40) Vital Signs Date Time Temp Pulse Resp B/P (MAP) Pulse Ox O2 Delivery O2 Flow Rate FiO2 10/21/24 19:28 92 18 98 Room Air* 0 21 10/21/24 18:49 97.9 70 14 157/77 (103) 99 97.9 10/21/24 15:25 97.8 87 18 129/77 (94) 97 97.8 Laboratory Tests Test 10/21/24 15:55 Lactic Acid Level 0.6 mmol/L (0.4-2.0) White Blood Count 6.7 10^3/uL (4.4-10.8) Departure 1 Departure Time of Disposition: 17:32 Impression: Primary Impression: Right lower quadrant pain Additional Impression: Constipation Disposition: 01 HOME / SELF CARE / HOMELESS Condition: Stable Additional Instructions: Additional instructions: You MUST follow-up with your primary care/family doctor in 1 to 2 days. If you are unable to see your primary care/family doctor, please return to our emergency room for re-assessment and re-evaluation in 1 to 2 days. Return to the emergency room here in our facility or to the nearest ER [facility] if your symptoms change or worsen. CONSULTATIONS: you MUST Follow-up for consultation as soon as possible with: Dr.-OB Berry doctor and General surgery in 1-2 days. Please call for appo intment. You MUST call the consultants office yourself to make an appointment. You may need to arrange that through your insurance and/or your primary/family doctor. If you are unable to see the human resources consultant in 1 to 2 days, you must return to our emergency room (or any other ER of your choice) for re-assessment and re- evaluation. Adequate fluid hydration. Increase fiber intake. Below is a copy of your radiological report for follow up: [address] [address] Ph: [phone] DIAGNOSTIC IMAGING Diagnostic Imaging Report : [id number] Signed PATIENT: MARILYN MCNEILL ACCT: [id number] UNIT: [id number] : 1955 LOC: ER ROOM / BED: / AGE / SEX: 68 / F ADM STATUS: REG ER SERVICE 1640 ORDERING PHYSICIAN: PAULO BENOIT DO PROCEDURE(s): PELUS - PELVIC REASON: RLQ PAIN ORDER NUMBER(s): [id number], ACCESSION NUMBER(s): [id number] INDICATION: RLQ PAIN TECHNIQUE: Multiple real-time grayscale transabdominal sonographic images along with color and duplex Doppler of the uterus and ovaries were obtained. COMPARISON: None FINDINGS: The uterus has been surgically removed. The right ovary not visible. The left ovary not visible IMPRESSION: 1. Uterus has been surgically removed. 2. Ovaries not visible. ATED BY: ETHAN ALDRICH Jr., DO DICTATED DATE/TIME: 10/21/241838 SIGNED BY: ETHAN ALDRICH Jr., DO SIGNED DATE/TIME: 10/21/241838 CC: [place] [address] Ph: [phone] DIAGNOSTIC IMAGING Diagnostic Imaging Report : [id number] Signed PATIENT: MARILYN MCNEILL ACCT: [id number] UNIT: [id number] : 1955 LOC: ER ROOM / BED: / AGE / SEX: 68 / F ADM STATUS: REG ER SERVICE 1534 ORDERING PHYSICIAN: PAULO BENOIT DO PROCEDURE(s): ABPL - CT AB PEL WO CON-NO ORAL OR IV REASON: RLQ PAIN N/V ORDER NUMBER(s): [id number], ACCESSION NUMBER(s): [id number] Indication: RLQ PAIN N/V Technique: CT axial images of the abdomen and pelvis are obtained without contrast. Coronal and sagittal reformats were obtained. Radiation Dose Information: CTDI volume is 15.4 mGy. Dose-length product is 703 mGy*cm Comparison: None FINDINGS: There is limited interpretation of the abdomen and pelvis without administration of intravenous contrast. Lung bases demonstrate atelectasis. Adrenal glands, spleen, pancreas unremarkable in shape. Cholecystectomy. Liver unremarkable in shape. No hydronephrosis/ nephrolithiasis. Stomach partially distended. Small bowel loops are normal in caliber. Moderate to large volume stool in the colon. Normal appendix. Abdominal aortic atherosclerotic disease. Bladder partially distended. No free pelvic fluid. No inguinal lymphadenopathy. Posterior fixation of the L4, L5 vertebral bodies with interbody disc spacer. Endplate irregularity at L4-5. IMPRESSION: Limited evaluation without contrast. No CT evidence for acute appendicitis. Moderate to large volume stool within the colon. Colonic diverticular disease. Cholecystectomy. Other findings as described ATED BY: DEWAYNE STATON MD DICTATED DATE/TIME: 10/21/241636 SIGNED BY: DEWAYNE STATON MD SIGNED DATE/TIME: 10/21/241636 CC: Discharged With: Self Critical Care Note Critical Care Time?: No I personally scribed for PAULO BENOIT DO ([email or web address]) on 10/21/24 at 15:41. Electronically submitted by Anh Sabillon ([email or web address]). I personally scribed for PAULO BENOIT DO ([email or web address]) on 10/21/24 at 16:47. Electronically submitted by Anh Sabillon ([email or web address]). I personally scribed for PAULO BENOIT DO ([email or web address]) on 10/21/24 at 18:55. Electronically submitted by Anh Sabillon ([email or web address]). PAULO BENOIT DO Oct 21, 2024 15:41
[2024-10-21] MEDS: SODIUM CHLORIDE 0.9% 1,000 ML IV ONE (15:45)
[2024-10-21 16:05] LABS: Hematocrit 40.9 % (36.0-46.0); Hemoglobin 13.2 g/dL (12.2-16.2); Mean Corpuscular Hemoglobin 27.0 pg (28.0-32.0); Mean Corpuscular Volume 83.7 fL (80.0-100.0); Nucleated Red Blood Cells % 0.1 %
[2024-10-21 16:22] LABS: Alanine Aminotransferase 13 U/L (7-40); Alkaline Phosphatase 89 U/L (46-116); Anion Gap 7 (5-15); BUN/Creatinine Ratio 11.9 (10.0-20.0); Blood Urea Nitrogen 10 mg/dL (9-23); Calcium 9.8 mg/dL (8.7-10.4); Carbon Dioxide 29 mmol/L (20-31); Glucose 91 mg/dL (74-106); Lipase 32 U/L (12-53); Potassium 4.0 mmol/L (3.5-5.1); Sodium 144 mmol/L (136-145); Total Protein 7.1 g/dL (5.7-8.2)
[2024-10-21 16:23] LABS: Albumin 4.5 g/dL (3.2-4.8); Bilirubin, Total 0.8 mg/dL (0.2-1.0)
[2024-10-21 16:24] LABS: Chloride 108 mmol/L (98-107)
--- NOTE | 2024-10-21 16:38 | DVH ---
Indication: RLQ PAIN N/V Technique: CT axial images of the abdomen and pelvis are obtained without contrast. Coronal and sagit suellen reformats were obtained. Radiation Dose Information: CTDI volume is 15.4 mGy. Dose-length product is 703 mGy*cm Comparison: None FINDINGS: There is limited interpretation of the abdomen and pelvis without administration of intravenous contr ast. Lung bases demonstrate atelectasis. Adrenal glands, spleen, pancreas unremarkable in shape. Cholecystectomy. Liver unremarkable in shap e. No hydronephrosis/ nephrolithiasis. Stomach partially distended. Small bowel loops are normal in caliber. Moderate to large volume stool in the colon. Normal appendix. Abdominal aortic atherosclerotic disease. Bladder partially distended. No free pelvic fluid. No ingui nal lymphadenopathy. Posterior fixation of the L4, L5 vertebral bodies with interbody disc spacer. Endplate irregularity at L4-5. IMPRESSION: Limited evaluation without contrast. No CT evidence for acute appendicitis. Moderate to large volume stool within the colon. Colonic diverticular disease. Cholecystectomy. Other findings as described
--- NOTE | 2024-10-21 18:41 | DVH ---
INDICATION: RLQ PAIN TECHNIQUE: Multiple real-time grayscale transabdominal sonographic images along with color and duplex Doppler of the uterus and ovaries were obtained. COMPARISON: None FINDINGS: The uterus has been surgically removed. The right ovary not visible. The left ovary not visible IMPRESSION: 1. Uterus has been surgically removed. 2. Ovaries not visible.
[2024-10-21 18:49] VITALS: BP 157/77; TEMP 97.9
[2024-10-21] MEDS: ONDANSETRON HCL 4 MG/2 ML VIAL IV ONE (19:27)
[2024-10-21 19:28] VITALS: PULSE 92; RESP 18; O2SAT 98
[2024-10-21 19:42] LABS: Urine Protein, UAD Negative (Negative)
[2024-10-21] MEDS: HYDROcodone-ACET 5/325MG TAB PO ONE (19:55)
== END 2024-10-21 20:01 | disposition home or self-care (01) ==
LOC: ER 15:07
DX: R10.31 Right lower quadrant pain (principal); K59.00 Constipation, unspecified; I10 Essential (primary) hypertension; Z79.899 Other long term (current) drug therapy; Z96.659 Presence of unspecified artificial knee joint
CPT/HCPCS: 36415; 74176; 76830; 76856; 80053; 81001; 83605; 83690; 84484; 85025; 96361; 96374; 99285; J2405; J7030

== ENCOUNTER 2024-11-11 11:13 | Emergency (ER) | payer OTHER, MEDICAID ==
--- NOTE | 2024-11-11 12:24 | ED.PDOC ---
SOB-HPI HPI Comments A 68-YEAR-OLD FEMALE WITH A HISTORY OF HYPERTENSION, AND ASTHMA PRESENTS TO THE ED WITH A C/C OF A POSSIBLE INHALATION TO BAD FOOD, WITH THE ASSOCIATED SYMPTOMS OF THROAT PAIN, HEADACHE, AND NAUSEA. PATIENT STATES THAT HER SYMPTOMS STARTED APPROXIMATELY 1 HOUR BEFORE ARRIVAL TO THE EMERGENCY DEPARTMENT WHEN SHE WAS AT WORK AND TOOK A DEEP INSPIRATION ON LEFT OVER FOOD IN THE DINING ROOM. PATIENT NOTES HER SYMPTOMS STARTED SHORTLY AFTER TAKING THE DEEP INSPIRATION. PATIENT DENIES ANY VOMITING, DIARRHEA, SHORTNESS OF BREATH CALL WITH THE TACHYPNEA, OR ANY OTHER ASSOCIATED SYMPTOMS, MODIFIERS AT THIS TIME. 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 Family History Family History: Reviewed,noncontributory to illness, No family hx of Cancer, No family hx of DM, No family hx of Heart mahin, No family hx of HTN, No family hx ofKidney mahin, No family hx of Liver mahin, No family hx of Lung mahin, No family hx of Stroke Social History Smoker: Non-Smoker Alcohol: Denies ETOH Use Drugs: Denies Drug Use Lives In: Home Constitutional: denies: chills, diaphoresis, fatigue, fever, malaise, sweats, weakness, others EENTM: reports: throat pain; denies: blurred vision, double vision, ear bleeding, ear discharge, ear drainage, ear pain, ear ringing, eye pain, eye redness, hearing loss, mouth pain, mouth swelling, nasal discharge, nose bl eeding, nose congestion, nose pain, photophobia, tearing, throat swelling, voice changes, others Respiratory: denies: cough, hemoptysis, orthopnea, SOB at rest, shortness of breath, SOB with excertion, stridor, wheezing, others Cardiovascular: denies: chest pain, dizzy spells, diaphoresis, Dyspnea on exertion, edema, irregular heart beat, left arm pain, lightheadedness, palpitations, PND, syncope, others Gastrointestinal: reports: nausea; denies: abdomen distended, abdominal pain, blood streaked bowels, constipated, diarrhea, dysphagia, difficulty swallowing, hematemesis, melena, poor appetite, poor fluid intake, rectal bleeding, rectal pain, vomiting, others Genitourinary: denies: abnormal vagina bleeding, burning, dyspareunia, dysuria, flank pain, frequency, hematuria, incontinence, pain, , vagina discharge, urgency, others Neurological: denies: dizziness, fainting, headache, left sided numbness, left sided weakness, numbness, paresthesia, pre-existing deficit, right sided numbness, right sided weakness, seizure, speech problems, tingling, tremors, weakness, others Musculoskeletal: denies: back pain, gout, joint pain, joint swelling, muscle pain, muscle stiffness, neck pain, others Integumetry: denies: bruises, change in color, change in hair/nails, dryness, laceration, lesions, lumps, rash, wounds, others Allergic/Immunocompromised: denies: Difficulty Healing, Frequent Infections, Hives, Itching, others Hematologic/Lymphatic: denies: anemia, blood clots, easy bleeding, easy bruising, swollen glands, others Endocrine: denies: excessive hunger, excessive sweating, excessive thirst, excessive urination, flushing, intolerance to cold, intolerance to heat, unexplained weight gain, unexplained weight loss, others Psychiatric: denies: anxiety, bipolar disorder, depression, hopeless, panic disorder, schizophrenia, sleepless, suicidal, others All Other Systems: Reviewed and Negative Physical Exam General Appearance: No Apparent Distress, Normal HEENT: Normal ENT Inspection, PERRL/EOMI, Pharyngeal Erythema (MILD SWELLING TONSILIS, NO EXUDATES. ), TMs Normal Neck: Full Range of Motion, Non-Tender, Normal, Normal Inspection Respiratory: Chest Non-Tender, Expiration, No Accessory Muscle Use, No Respiratory Distress, Wheezing (MILD) Cardiovascular: No Edema, No JVD, No Murmur, No Gallop, Normal Peripheral Pulses, Regular Rate/Rhythm Breast Exam: Deferred Gastrointestinal: No Organomegaly, Non Tender, No Pulsatile Mass, Normal Bowel Sounds, Soft Genitalia: Deferred Pelvic: Deferred Rectal: Deferred Extremities: No calf tenderness, Normal capillary refill, Normal inspection, Normal range of motion, Non-tender, No pedal edema Musculoskeletal : Apperance: Normal Neurologic: Alert, 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 Was a procedure done?: No Differential Dx Differential Diagnosis: Anxiety, Asthma, Bronchitis, Sinusitis, Allergic Rhinitis, Pharyngitis, URI, Other (BRONCHOSPSM ) X-Ray, Labs, Meds, VS Vital Signs Date Time Temp Pulse Resp B/P (MAP) Pulse Ox O2 Delivery O2 Flow Rate FiO2 11/11/24 12:44 18 97 Room Air* 0 21 11/11/24 11:15 97.9 73 18 112/76 98 97.9 Current Medications Medications (Trade) Dose Ordered Sig/Joseline Route Start Time Stop Time Status Last Admin Albuterol (Ventolin Medneb) 2.5 mg ONCE ONCE NEB 11/11/24 12:15 11/11/24 12:16 DC 11/11/24 12:44 Ipratropium [place] (Atrovent Medneb) 0.5 mg ONCE ONCE NEB 11/11/24 12:15 11/11/24 12:16 DC 11/11/24 12:44 PATIENT: MARILYN MCNEILL ACCT: [id number] UNIT: [id number] : 1955 LOC: ER ROOM / BED: / AGE / SEX: 68 / F ADM STATUS: REG ER SERVICE 1131 ORDERING PHYSICIAN: DIONICIO WOOD PROCEDURE(s): CXR1 - CHEST XRAY 1 VIEW REASON: INHALTION ORDER NUMBER(s): [id number], ACCESSION NUMBER(s): [id number] CHEST RADIOGRAPH Indication: INHALTION Technique: Single frontal view of the chest was obtained COMPARISON: XY CHEST PORTABLE on DOS: 09/19/23, XY CHEST PORTABLE on DOS: 07/18/23, CT CT ANGIO CHEST CONTRAST on DOS: 07/17/23, XY CHEST PORTABLE on DOS: 07/17/23 FINDINGS: Lines and Tubes: None Lungs: Clear Pleura: No effusion. No pneumothorax. Cardiomediastinal contours: Unremarkable Bones: Unremarkable IMPRESSION: No acute disease. X-Ray, Labs, Meds, VS Comment EXTERNAL MEDICAL RECORDS REVIEWED: [NONE] INDEPENDENT HISTORIANS: [NONE] SOCIAL DETERMINANTS OF HEALTH: [NONE] LABS ORDERED: NONE REVIEWED AND INTERPRETED RESULTS: NONE IMAGING ORDERED: CHEST X-RAY ORDERED AND PENDING AND INTERPRETED BY ME. NO ACUTE FINDINGS. NO FRACTURES OR DISLOCATION. PENDING RADIOLOGIST REPORT. TREATMENTS ORDERED: ALBUTEROL, NEBULIZER PROCEDURES PERFORMED: NONE CRITICAL CARE TIME: NONE I HAVE DISCUSSED THE PATIENT WITH THE ATTENDING PHYSICIAN [AU] AND HE AGREES WITH THE PATIENT'S PLAN OF CARE AND DISPOSITION. BASED ON HISTORY OF PRESENT ILLNESS, AND PHYSICAL EXAM, PATIENT WILL BE DISCHARGED HOME. DISCUSSED PLAN FOR DISCHARGE HOME WITH RX [2% VISCUS LIDOCAINE ]. MEDICATION WARNINGS GIVEN. SHARED DECISION MAKING: DISCUSSED WITH PATIENT THAT THEIR WORKUP WAS NORMAL. PATIENT INSTRUCTED TO FOLLOW UP WITH PRIMARY CARE PROVIDER IN 1-2 DAYS FOR RE- EVALUATION OF SYMPTOMS. PATIENT VERBALIZES UNDERSTANDING TO RETURN TO ED FOR NEW OR WORSENING SYMPTOMS OR IF FOLLOW UP WITH PCP CANNOT BE OBTAINED. PATIENT FEELS COMFORTABLE GOING HOME AT THIS TIME. ALL QUESTIONS ADDRESSED AT TIME OF DISCHARGE. Time of 1ST Reevaluation: 12:50 Reevaluation 1ST: Improved Patient Education/Counseling: Diagnosis, Treatment, Need For Follow Up Family Education/Counseling: Diagnosis, Treatment, Need For Follow Up, No Family Present Medical Screening: No EMC Exist At This Time SEPSIS Sepsis Screen Date sepsis recognized/suspect: Nov 11, 2024 Time Sepsis recognized/suspect: 1116 Recent Procedure: No On Antibiotic Therapy: No Respiratory Rate >20: No Heart Rate >90: No Temp<36 C (96.8 F) or >38.3 C: No SBP <90 or MAP <65 mmHG: No New Acute Mental Status Change: No Is the patient on CPAP, BIPAP,: No Physician Orders Chest Xray 1 View (11/11/24 11:31) Vital Signs Date Time Temp Pulse Resp B/P (MAP) Pulse Ox O2 Delivery O2 Flow Rate FiO2 11/11/24 12:44 18 97 Room Air* 0 21 11/11/24 11:15 97.9 73 18 112/76 98 97.9 Medications Medications Dose Ordered Sig/Joseline Route Start Time Stop Time Status Last Admin Dose Admin Albuterol 2.5 mg ONCE ONCE NEB 11/11/24 12:15 11/11/24 12:16 DC 11/11/24 12:44 Ipratropium [place] 0.5 mg ONCE ONCE NEB 11/11/24 12:15 11/11/24 12:16 DC 11/11/24 12:44 Departure 1 Departure Time of Disposition: 13:22 Impression: Primary Impression: Bronchospasm Additional Impression: Throat irritation Disposition: HOME / SELF CARE / HOMELESS Condition: Stable Additional Instructions: FOLLOW-UP WITH PCP IN 1 TO 2 DAYS. TAKE MEDICATIONS PRESCRIBED. RETURN TO ED FOR ANY NEW OR WORSENING SYMPTOMS. e-Prescriptions Lidocaine HCl (Mouth-Throat) (Lidocaine HCl Viscous) 2 % Debbi 5 ML MT TID, #100 ML Prov: DIONICIO WOOD 11/11/24 Discharged With: Self Critical Care Note Critical Care Time?: No Stability Stability form required: No Heart Score Heart Score: Heart Score Response (Comments) Value History N/A 0 EKG N/A 0 Age N/A 0 Risk Factors N/A 0 Troponin N/A 0 Total 0 I personally scribed for DIONICIO WOOD ([email or web address]) on 11/11/24 at 12:24. Electronically submitted by Moses Ferraro ([employer]). I personally scribed for DIONICIO WOOD ([email or web address]) on 11/11/24 at 12:25. Electronically submitted by Moses Ferraro ([email or web address]). I personally scribed for DIONICIO WOOD ([email or web address]) on 11/11/24 at 12:52. Electronically submitted by Moses Ferraro ([email or web address]). I personally scribed for DIONICIO WOOD ([email or web address]) on 11/11/24 at 12:53. Electronically submitted by Moses Ferraro ([employer]). DIONICIO WOOD Nov 11, 2024 12:24
--- NOTE | 2024-11-11 12:38 | DVH ---
CHEST RADIOGRAPH Indication: INHALTION Technique: Single frontal view of the chest was obtained COMPARISON: XY CHEST PORTABLE on DOS: 09/19/23, XY CHEST PORTABLE on DOS: 07/18/23, CT CT ANGIO CHEST C ONTRAST on DOS: 07/17/23, XY CHEST PORTABLE on DOS: 07/17/23 FINDINGS: Lines and Tubes: None Lungs: Clear Pleura: No effusion. No pneumothorax. Cardiomediastinal contours: Unremarkable Bones: Unremarkable IMPRESSION: No acute disease.
[2024-11-11] MEDS: IPRATROPIUM BROM 0.5 MG/2.5ML INH SOL NEB ONE (12:44)
[2024-11-11] MEDS: ALBUTEROL SULF 2.5 MG/0.5ML(0.5%) NEB SOLN NEB ONE (12:44)
[2024-11-11 13:21] VITALS: BP 132/65; PULSE 75; RESP 16; TEMP 98; O2SAT 99
[2024-11-11] MEDS ORDERED: LIDO2SOL26 MT (13:23)
== END 2024-11-11 13:25 | disposition home or self-care (01) ==
LOC: EDBD → ER 11:13
DX: J98.01 Acute bronchospasm (principal); J39.2 Other diseases of pharynx; I10 Essential (primary) hypertension; Z79.899 Other long term (current) drug therapy
CPT/HCPCS: 71045; 82947; 94640

== ENCOUNTER 2024-11-12 21:44 | Emergency (ER) | payer OTHER, MEDICAID ==
[~2024-11-12] VITALS: Ht 160 cm; Wt 76.2 kg
[~2024-11-12 21:44] MED LIST changes: +LIDO2SOL26 MT
--- NOTE | 2024-11-12 22:00 | ED.PDOC ---
GI ASSESSMENT HPI Comments 69-year-old female who came to ER via EMS for abdominal pain. For the past 2 weeks, patient has been experiencing intermittent episodes of lower abdominal pain, radiating to both her flanks/back area. Denies any nausea or vomiting, denies any urinary symptoms or changes in bowel habits. Patient was given 1 g of Tylenol prior to arrival to the ER Chief Complaint: Abdominal pain Time Seen by MD: 21:59 Reviewed Notes: Nurses Notes Allergies: Coded Allergies: NO KNOWN ALLERGIES (Unverified , 07/09/23) Home Meds Active Scripts Cefdinir (Cefdinir) 300 Mg Cap, 1 CAP PO BID for 10 Days, #20 CAP Prov:ALEXIS LOVING MD 11/13/24 Lidocaine HCl (Mouth-Throat) (Lidocaine HCl Viscous) 2 % Debbi, 5 ML MT TID, #100 ML Prov:DIONICIO WOOD 11/11/24 Acetaminophen W/ Codeine (Tylenol W/Cod #3) 1 Tab Tb, 1 TAB PO Q6HP PRN, #20 TAB Prov:YUNIER JOHNS PAC 09/05/23 Lactulose (Lactulose) 10 Gm/15 Ml Debbi, 10 GM PO BIDP PRN, #150 ML Prov:YUNIER JOHNS PAC 09/05/23 Reported Medications Losartan Potassium (Losartan Potassium) 50 Mg Tab, 50 MG PO DAILY, TAB 07/09/23 Celecoxib (Celebrex) 200 Mg Cap, 200 MG PO DAILY, CAP 07/09/23 Information Source: Patient, Emergency Med Personnel Mode of Arrival: EMS Timing: Weeks Duration: Intermittent Prehospital treatment: None Quality: Aching Vomitus: None Stool: Normal Severity: Moderate Recent: None Recent Hx of: Abdominal Surgery Pain Location: Suprapubic Modifying Factors: Nothing Associated sign and symptoms: Abdominal Pain, Other (Flank pain) Past Medical History PAST MEDICAL HISTORY: Asthma, HTN, UTI'S Surgical History: Hysterectomy PT SKILLED History: No Pertinent PT SKILLED History Family History Family History: Reviewed,noncontributory to illness, No family hx of Cancer, No family hx of DM, No family hx of Heart mahin, No family hx of HTN, No family hx ofKidney mahin, No family hx of Liver mahin, No family hx of Lung mahin, No family hx of Stroke Social History Smoker: Non-Smoker Alcohol: Denies ETOH Use Drugs: Denies Drug Use Lives In: Home Constitutional: denies: chills, diaphoresis, fatigue, fever, malaise, sweats, weakness, others EENTM: denies: blurred vision, double vision, ear bleeding, ear discharge, ear drainage, ear pain, ear ringing, eye pain, eye redness, hearing loss, mouth pain, mouth swelling, nasal discharge, nose bleeding, nose congestion, nose pain, photophobia, tearing, throat pain, throat swelling, voice changes, others Respiratory: denies: cough, hemoptysis, orthopnea, SOB at rest, shortness of breath, SOB with excertion, stridor, wheezing, others Cardiovascular: denies: chest pain, dizzy spells, diaphoresis, Dyspnea on exertion, edema, irregular heart beat, left arm pain, lightheadedness, palpitations, PND, syncope, others Gastrointestinal: reports: abdominal pain; denies: abdomen distended, blood streaked bowels, constipated, diarrhea, dysphagia, difficulty swallowing, hematemesis, melena, nausea, poor appetite, poor fluid intake, rectal bleeding, rectal pain, vomiting, others Genitourinary: reports: flank pain; denies: abnormal vagina bleeding, burning, dyspareunia, dysuria, frequency, hematuria, incontinence, pain, , vagina discharge, urgency, others Neurological: denies: dizziness, fainting, headache, left sided numbness, left sided weakness, numbness, paresthesia, pre-existing deficit, right sided numbness, right sided weakness, seizure, speech problems, tingling, tremors, weakness, others Musculoskeletal: reports: back pain; denies: gout, joint pain, joint swelling, muscle pain, muscle stiffness, neck pain, others Integumetry: denies: bruises, change in color, change in hair/nails, dryness, laceration, lesions, lumps, rash, wounds, others Allergic/Immunocompromised: denies: Difficulty Healing, Frequent Infections, Hives, Itching, others Hematologic/Lymphatic: denies: anemia, blood clots, easy bleeding, easy bruising, swollen glands, others Endocrine: denies: excessive hunger, excessive sweating, excessive thirst, excessive urination, flushing, intolerance to cold, intolerance to heat, unexplained weight gain, unexplained weight loss, others Psychiatric: denies: anxiety, bipolar disorder, depression, hopeless, panic disorder, schizophrenia, sleepless, suicidal, others Physical Exam General Appearance: No Apparent Distress, Normal HEENT: Normal ENT Inspection, Pharynx Normal, TMs Normal Neck: Full Range of Motion, Non-Tender, Normal, Normal Inspection Respiratory: Chest Non-Tender, Lungs Clear, No Accessory Muscle Use, No Respiratory Distress, Normal Breath Sounds Cardiovascular: No Edema, No JVD, No Murmur, No Gallop, Normal Peripheral Pulses, Regular Rate/Rhythm Breast Exam: Deferred Gastrointestinal: No Organomegaly, Non Tender, No Pulsatile Mass, Normal Bowel Sounds, Soft Genitalia: Deferred Pelvic: Deferred Rectal: Deferred Extremities: No calf tenderness, Normal capillary refill, Normal inspection, Normal range of motion, Non-tender, No pedal edema Musculoskeletal : Apperance: Normal Neurologic: Alert, 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 Was a procedure done?: No GI differential Dx Differential Diagnosis: Constipation, Diverticular disease, Gastritis/PUD, Gastroenteritis, Hernia, Ovarian cyst/torsion, Pancreatitis, UTI, Urolithiasis X-Ray, Labs, Meds, VS Vital Signs Date Time Temp Pulse Resp B/P (MAP) Pulse Ox O2 Delivery O2 Flow Rate FiO2 11/13/24 01:00 97.9 59 14 118/70 (86) 95 97.9 11/13/24 00:40 Room Air* 0 21 11/12/24 22:01 98.7 67 16 141/70 96 98.7 Lab Test 11/12/24 22:07 Range/Units White Blood Count 10.0 4.4-10.8 10^3/uL Red Blood Count 4.51 4.0-5.20 10^6/uL Hemoglobin 12.4 12.2-16.2 g/dL Hematocrit 37.6 36.0-46.0 % Mean Corpuscular Volume 83.5 80.0-100.0 fL Mean Corpuscular Hemoglobin 27.6 L 28.0-32.0 pg Mean Corpuscular Hemoglobin Concent 33.1 32.0-36.0 g/dL Red Cell Distribution Width 15.2 H 11.8-14.3 % Platelet Count 197 140-450 10^3/uL Mean Platelet Volume 7.5 6.9-10.8 fL Neutrophils (%) (Auto) 73.4 37.0-80.0 % Lymphocytes (%) (Auto) 14.9 10.0-50.0 % Monocytes (%) (Auto) 11.3 0.0-12.0 % Eosinophils (%) (Auto) 0.1 0.0-7.0 % Basophils (%) (Auto) 0.3 0.0-2.0 % Neutrophils # (Auto) 7.3 1.6-8.6 10 ^3/uL Lymphocytes # (Auto) 1.5 0.4-5.4 10 ^3/uL Monocytes # (Auto) 1.1 0-1.3 10 ^3/uL Eosinophils # (Auto) 0 0-0.8 10 ^3/uL Basophils # (Auto) 0 0-0.2 10 ^3/uL Nucleated Red Blood Cells 0.0 % Sodium Level 137 136-145 mmol/L Potassium Level 3.8 3.5-5.1 mmol/L Chloride Level 103 98-107 mmol/L Carbon Dioxide Level 25 20-31 mmol/L Anion Gap 9 5-15 Blood Urea Nitrogen 11 9-23 mg/dL Creatinine 0.79 0.550-1.02 mg/dL Glomerular Filtration Rate Calc 81 >90 mL/min BUN/Creatinine Ratio 13.9 10.0-20.0 Serum Glucose 97 74-106 mg/dL Calcium Level 9.5 8.7-10.4 mg/dL Total Bilirubin 1.9 H 0.2-1.0 mg/dL Aspartate Amino Transferase (AST) 20 13-40 U/L Alanine Aminotransferase (ALT) 14 7-40 U/L Alkaline Phosphatase 78 46-116 U/L Total Protein 7.0 5.7-8.2 g/dL Albumin 4.2 3.2-4.8 g/dL Current Medications Medications (Trade) Dose Ordered Sig/Joseline Route Start Time Stop Time Status Last Admin Sodium Chloride 1,000 ml @ 1,000 mls/hr Q1H ONCE IVB 11/12/24 22:00 11/12/24 22:59 DC 11/13/24 00:38 Time of 1ST Reevaluation: 21:56 Reevaluation 1ST: Unchanged Patient Education/Counseling: Diagnosis, Treatment Family Education/Counseling: No Family Present SEPSIS Sepsis Screen Physician Orders Urinalysis (11/12/24 21:54) Ct Ab Pel With Iv Con Only (11/12/24 21:54) Vital Signs Date Time Temp Pulse Resp B/P (MAP) Pulse Ox O2 Delivery O2 Flow Rate FiO2 11/13/24 01:00 97.9 59 14 118/70 (86) 95 97.9 11/13/24 00:40 Room Air* 0 21 11/12/24 22:01 98.7 67 16 141/70 96 98.7 Laboratory Tests Test 11/12/24 22:07 White Blood Count 10.0 10^3/uL (4.4-10.8) Medications Medications Dose Ordered Sig/Joseline Route Start Time Stop Time Status Last Admin Dose Admin Sodium Chloride 1,000 ml @ 1,000 mls/hr Q1H ONCE IVB 11/12/24 22:00 11/12/24 22:59 DC 11/13/24 00:38 Departure 1 Departure Time of Disposition: 23:30 Impression: Primary Impression: Abdominal pain Disposition: 01 HOME / SELF CARE / HOMELESS Condition: Stable e-Prescriptions Cefdinir (Cefdinir) 300 Mg Cap 1 CAP PO BID for 10 Days, #20 CAP Prov: ALEXIS LOVING MD 11/13/24 Discharged With: Self Critical Care Note Critical Care Time?: No Stability Stability form required: No Heart Score Heart Score: Heart Score Response (Comments) Value History N/A 0 EKG N/A 0 Age N/A 0 Risk Factors N/A 0 Troponin N/A 0 Total 0 I personally scribed for ALEXIS LOVING MD ([email or web address]) on 11/12/24 at 22:00. Electronically submitted by Freddy Thomas ([email or web address]). ALEXIS LOVING MD Nov 12, 2024 22:00
[2024-11-12 22:26] LABS: Hematocrit 37.6 % (36.0-46.0); Hemoglobin 12.4 g/dL (12.2-16.2); Mean Corpuscular Hemoglobin 27.6 pg (28.0-32.0); Mean Corpuscular Volume 83.5 fL (80.0-100.0); Nucleated Red Blood Cells % 0.0 %
[2024-11-12 22:39] LABS: Alanine Aminotransferase 14 U/L (7-40); Albumin 4.2 g/dL (3.2-4.8); Alkaline Phosphatase 78 U/L (46-116); Anion Gap 9 (5-15); BUN/Creatinine Ratio 13.9 (10.0-20.0); Blood Urea Nitrogen 11 mg/dL (9-23); Calcium 9.5 mg/dL (8.7-10.4); Carbon Dioxide 25 mmol/L (20-31); Chloride 103 mmol/L (98-107); Glucose 97 mg/dL (74-106); Potassium 3.8 mmol/L (3.5-5.1); Sodium 137 mmol/L (136-145); Total Protein 7.0 g/dL (5.7-8.2)
[2024-11-12 22:47] LABS: Bilirubin, Total 1.9 mg/dL (0.2-1.0)
[2024-11-12] MEDS: IOHEXOL 300 MG/ML 100ML BOTTLE IJ ONE (23:25)
--- NOTE | 2024-11-12 23:52 | DVH ---
COMPUTERIZED TOMOGRAPHY ABDOMEN AND PELVIS WITH CONTRAST REASON FOR EXAM: abd pain COMPARISON: US PELVIC on DOS: 10/21/24, CT CT AB PEL WO CON-NO ORAL OR IV on DOS: 10/21/24 TECHNIQUE: The exam was performed on a Multidetector scanner. Spiral scans were acquired from the nohemy phragm to the symphysis pubis after administration of IV contrast. 2-D coronal and sagittal reformatt ed images were provided. Radiation optimization: All CT scans at this facility use at least one of th heidy dose optimization techniques: Automated exposure control mA and/or kV adjustment per patient size (includes targeted exams where dose is matched to clinical indication) or iterative reconstruction. CONTRAST ADMINISTRATION: 100 mL omnipaque 300 intravenously RADIATION DOSE: CTDI: 17.65 mGy DLP: 1026.04 mGy-cm FINDINGS: There is linear atelectasis versus scarring in the right lower lobe. There is no pleural effusion. T here is no pericardial effusion. There is mild elevation of the right hemidiaphragm. The spleen is not enlarged. The liver is normal in size and contour. There is mild intrahepatic bilia ry dilation, likely secondary to cholecystectomy. The common bile duct is also prominent at 12 mm whi ch can be seen post cholecystectomy. The pancreas is within normal limits. There is no dilation of th e pancreatic duct. The adrenal glands are normal. The kidneys enhance symmetrically. There is no molina d renal mass. There is no hydronephrosis of either kidney. There is no abdominal aortic aneurysm. The re is no pathologic lymphadenopathy by size criteria. There is no distention of the small bowel. The urinary bladder is grossly unremarkable. The uterus is absent. The ovaries are not seen and may also be absent. No free fluid is identified in the abdomen or pelvis. The colonic stool burden is moderat e. The appendix is normal. No acute osseous abnormality is identified. There is transpedicular fusion of L4 and L5. IMPRESSION: Intrahepatic and extrahepatic biliary dilation. This can be seen secondary to cholecystectomy. Ther e is no dilation of the pancreatic duct. Prior hysterectomy Normal appendix. No evidence of bowel obstruction.
[2024-11-13] MEDS ORDERED: CEFD300C2 PO (00:26)
[2024-11-13] MEDS: SODIUM CHLORIDE 0.9% 1,000 ML IVB ONE (00:38)
[2024-11-13 01:00] VITALS: BP 118/70; PULSE 59; RESP 14; TEMP 97.9; O2SAT 95
== END 2024-11-13 01:42 | disposition home or self-care (01) ==
LOC: ER 21:44 → EDBD 21:44 → ER 11-13 01:42
DX: R10.30 Lower abdominal pain, unspecified (principal); J45.909 Unspecified asthma, uncomplicated; I10 Essential (primary) hypertension; Z90.710 Acquired absence of both cervix and uterus; Z79.899 Other long term (current) drug therapy
CPT/HCPCS: 36415; 74177; 80053; 85025; 96360; 99285; J7030; Q9967

== ENCOUNTER 2024-12-25 21:33 | Emergency (ER) | payer OTHER, MEDICAID ==
[~2024-12-25] VITALS: Ht 154.9 cm; Wt 80.3 kg
[~2024-12-25 21:33] MED LIST changes: +CEFD300C2 PO
[2024-12-25 21:36] VITALS: BP 128/78; PULSE 100; RESP 17; TEMP 98; O2SAT 97
--- NOTE | 2024-12-25 21:57 | ED.PDOC ---
History of Present Illness HPI Comments 69 y/o obese F presents with c/c lower back and left knee pain s/p mechanical fall and injury at home. No lost of consciousness or additional injuries or acute symptoms endorsed. Chief Complaint: Back Pain Time Seen by MD: 21:50 Reviewed Notes: Nurses Notes, Medications, Allergies Allergies: Coded Allergies: NO KNOWN ALLERGIES (Unverified , 07/09/23) Home Meds Active Scripts Diclofenac Sodium (Diclofenac Sodium Ec) 50 Mg Tab, 1 TAB PO BID PRN for 7 Days, #14 TAB Prov:DRE SNOWDEN MANAGER CREDIT COLLECTIONS 12/25/24 Cefdinir (Cefdinir) 300 Mg Cap, 1 CAP PO BID for 10 Days, #20 CAP Prov:ALEXIS LOVING MD 11/13/24 Lidocaine HCl (Mouth-Throat) (Lidocaine HCl Viscous) 2 % Debbi, 5 ML MT TID, #100 ML Prov:DIONICIO WOOD PA 11/11/24 Acetaminophen W/ Codeine (Tylenol W/Cod #3) 1 Tab Tb, 1 TAB PO Q6HP PRN, #20 TAB Prov:YUNIER JOHNS PAC 09/05/23 Lactulose (Lactulose) 10 Gm/15 Ml Debbi, 10 GM PO BIDP PRN, #150 ML Prov:YUNIER JOHNS PAC 09/05/23 Reported Medications Losartan Potassium (Losartan Potassium) 50 Mg Tab, 50 MG PO DAILY, TAB 07/09/23 Celecoxib (Celebrex) 200 Mg Cap, 200 MG PO DAILY, CAP 07/09/23 Information Source: Patient Mode of Arrival: Ambulatory Severity: Moderate Timing: Hours Duration: Since onset Prehospital treatment: None Past Medical History PAST MEDICAL HISTORY: Asthma, HTN, UTI'S Surgical History: Hysterectomy ENGINEERING PROGRAM MANAGER History: No Pertinent ENGINEERING PROGRAM MANAGER History Family History Family History: Reviewed,noncontributory to illness, No family hx of Cancer, No family hx of DM, No family hx of Heart mahin, No family hx of HTN, No family hx ofKidney mahin, No family hx of Liver mahin, No family hx of Lung mahin, No family hx of Stroke Social History Smoker: Non-Smoker Alcohol: Denies ETOH Use Drugs: Denies Drug Use Lives In: Home All Other Systems: Reviewed and Negative (Comprehensive review of systems are negative unless stated in HPI) Physical Exam General Appearance: No Apparent Distress, Normal HEENT: Pharynx Normal Neck: Full Range of Motion, Non-Tender Respiratory: Lungs Clear, No Respiratory Distress, Normal Breath Sounds Cardiovascular: No Murmur, Normal Peripheral Pulses, Regular Rate/Rhythm Breast Exam: Deferred Gastrointestinal: Non Tender, Soft Genitalia: Deferred Pelvic: Deferred Rectal: Deferred Extremities: Normal capillary refill, Normal range of motion Musculoskeletal : Location: Left Extremity Location: Back (TENDERNESS ALONG LEFT LOWER BACK MUSCULATURE. TENDERNESS PALPATED OVER L ONE THROUGH L4 SPINE WITHOUT CREPITUS OR STEP-OFFS. NO VISIBLE GROSS EXTERNAL TRAUMA. STRENGTH SENSORY MOTION INTACT. NEGATIVE STRAIGHT LEG RAISE BILATERAL.) Apperance: Normal Neurologic: Alert, No Motor Deficits, Normal Affect, Normal Mood, No Sensory Deficits Cerebellar Function: Normal Reflexes: NOT DONE Skin: Dry, Normal Color, Warm Lymphatic: No Adenopathy Was a procedure done? Was a procedure done?: No Sedation Sedation?: No Differential Dx Considerations may include: musculoskeletal pain, dislocation, fracture, contusions, among others X-Ray, Labs, Meds, VS Vital Signs Date Time Temp Pulse Resp B/P (MAP) Pulse Ox O2 Delivery O2 Flow Rate FiO2 12/25/24 21:36 98.0 100 17 128/78 97 98.0 Current Medications Medications (Trade) Dose Ordered Sig/Joseline Route Start Time Stop Time Status Last Admin Dexamethasone Sodium Phosphate (Decadron Injection) 10 mg ONCE ONCE IM 12/25/24 23:00 12/25/24 23:01 DC 12/25/24 23:20 X-Ray, Labs, Meds, VS Comment There are 5 nou-[id number]-[id number] lumbar type vertebral bodies. The pedicles are intact. Sacroiliac joints are maintained. Visualized hip joint spaces are maintained. Posterior spinal fixation hardware is seen at L4-L5 with interbody spacer at this level. Bilateral rods and transpedicular screws are seen. There is no acute fracture. Vertebral body heights are maintained. Alignment is preserved. There is multilevel facet hypertrophy and mild degenerative disc disease of the lumbar spine. The visualized bowel gas is nonobstructed. Cholecystectomy clips are seen. Moderate retained stool in the colon. IMPRESSION: 1. No acute fracture or traumatic malalignment. 2. Posterior spinal fixation hardware seen at L4-L5 with interbody spacer at this level. 3. Mild lumbar spondylosis. Comparison: XR KNEE LEFT 3 VIEW on DOS: 12/12/24 FINDINGS/IMPRESSION: : There is no evidence of acute fracture or dislocation. There is a left knee arthroplasty with patellar resurfacing. No periprosthetic lucency or fracture. Mild prepatellar soft tissue swelling. Mild soft tissue swelling anterior to the patellar tendon PATIENT GIVEN DECADRON 10 MG IM. SCRIPT TRIAL OF ANTI-INFLAMMATORY KHOI ADVISED TO ELEVATE LEFT KNEE ICE. TAKE MEDICATION PRESCRIBED SIDE EFFECTS DISCUSSED. ADVISED TO FOLLOW UP WITH HER PCP IN 2-3 DAYS NECESSARY CONSIDER FURTHER IMAGING SYMPTOMS PERSIST. ADVISED TO RETURN TO THE ER FOR INCREASING PAIN, NUMBNESS, WEAKNESS, LOSS OF BOWEL BLADDER CONTROL, OR SADDLE ANESTHESIA. PATIENT INDICATES UNDERSTANDING AGREES WITH DISCHARGE PLAN OF CARE. Time of 1ST Reevaluation: 22:20 Reevaluation 1ST: Unchanged Time of 2ND Reevaluation: 23:36 Reevaluation 2ND: Improved Patient Education/Counseling: Diagnosis, Treatment, Need For Follow Up Family Education/Counseling: Diagnosis, Treatment, Need For Follow Up, No Family Present SEPSIS Sepsis Screen Date sepsis recognized/suspect: Dec 25, 2024 Time Sepsis recognized/suspect: 2135 Recent Procedure: No On Antibiotic Therapy: No Respiratory Rate >20: No Heart Rate >90: Yes Temp<36 C (96.8 F) or >38.3 C: No SBP <90 or MAP <65 mmHG: No New Acute Mental Status Change: No Is the patient on CPAP, BIPAP,: No Physician Orders L Knee 3v Xray (12/25/24 22:10) Lumbar Spine 3 View (12/25/24 22:10) Vital Signs Date Time Temp Pulse Resp B/P (MAP) Pulse Ox O2 Delivery O2 Flow Rate FiO2 12/25/24 21:36 98.0 100 17 128/78 97 98.0 Medications Medications Dose Ordered Sig/Joseline Route Start Time Stop Time Status Last Admin Dose Admin Dexamethasone Sodium Phosphate 10 mg ONCE ONCE IM 12/25/24 23:00 12/25/24 23:01 DC 12/25/24 23:20 Departure 1 Departure Time of Disposition: 22:59 Impression: Primary Impression: Lumbar sprain Qualified Codes: S33.5XXA - Sprain of ligaments of lumbar spine, initial encounter Additional Impression: Contusion of left knee and lower leg Qualified Codes: S80.02XA - Contusion of left knee, initial encounter; S80.12XA - Contusion of left lower leg, initial encounter Disposition: 01 HOME / SELF CARE / HOMELESS Condition: Stable e-Prescriptions Diclofenac Sodium (Diclofenac Sodium Ec) 50 Mg Tab 1 TAB PO BID PRN for 7 Days, #14 TAB Prov: DRE SNOWDEN 12/25/24 Discharged With: Self Critical Care Note Critical Care Time?: No Stability Stability form required: No Heart Score Heart Score: Heart Score Response (Comments) Value History N/A 0 EKG N/A 0 Age N/A 0 Risk Factors N/A 0 Troponin N/A 0 Total 0 I personally scribed for ER ([email or web address]) on 12/25/24 at 21:57. Electronically submitted by Lucio Cline ([email or web address]). ER Dec 25, 2024 21:57 DRE SNOWDEN Dec 25, 2024 23:00
--- NOTE | 2024-12-25 22:48 | DVH ---
CLINICAL INDICATION: WORK INJURY/PAIN/SWELLING TECHNIQUE: XY L KNEE 3V XRAY Comparison: XR KNEE LEFT 3 VIEW on DOS: 12/12/24 FINDINGS/IMPRESSION: : There is no evidence of acute fracture or dislocation. There is a left knee arthroplasty with patellar resurfacing. No periprosthetic lucency or fracture. Mild prepatellar soft tissue swelling. Mild soft tissue swelling anterior to the patellar tendon.
--- NOTE | 2024-12-25 22:49 | DVH ---
EXAM: XY LUMBAR SPINE 3 VIEW HISTORY: PAIN WORK INJURY COMPARISON: CR LUMBAR SPINE AP/LAT W FLEX EXT on DOS: 05/23/24, XY LUMBAR SPINE 3 VIEW on DOS: 07/14/23 TECHNIQUE: AP and lateral views of the lumbar spine were performed. FINDINGS: There are 5 ldl-man-[id number] lumbar type vertebral bodies. The pedicles are intact. Sacroiliac joints are maintained. Visualized hip joint spaces are maintained. Posterior spinal fixation hardware is s een at L4-L5 with interbody spacer at this level. Bilateral rods and transpedicular screws are seen. There is no acute fracture. Vertebral body heights are maintained. Alignment is preserved. There is multilevel facet hypertrophy and mild degenerative disc disease of the lumbar spine. The visualized b owel gas is nonobstructed. Cholecystectomy clips are seen. Moderate retained stool in the colon. IMPRESSION: 1. No acute fracture or traumatic malalignment. 2. Posterior spinal fixation hardware seen at L4-L5 with interbody spacer at this level. 3. Mild lumbar spondylosis.
[2024-12-25] MEDS ORDERED: DICL50TA4 PO (23:01)
== END 2024-12-25 23:00 | disposition home or self-care (01) ==
LOC: ER 21:33
DX: S33.5XXA Sprain of ligaments of lumbar spine, initial encounter (principal); S80.02XA Contusion of left knee, initial encounter; S80.12XA Contusion of left lower leg, initial encounter; I10 Essential (primary) hypertension; J45.909 Unspecified asthma, uncomplicated; Z79.899 Other long term (current) drug therapy; Z87.440 Personal history of urinary (tract) infections; Z90.710 Acquired absence of both cervix and uterus; Z96.652 Presence of left artificial knee joint
CPT/HCPCS: 72100; 73562; 96372; 99284; J1100